=== PATIENT | female | born 1925 | race African-American/Black ===

== ENCOUNTER 2016-07-31 16:53 | Inpatient (IN) | payer MEDICARE, MEDICAID ==
--- NOTE | 2016-07-31 17:06 | ER Document Report ---
ED General - General Mode of Arrival: Medic Information source: Patient, Emergency Med Personnel TRAVEL OUTSIDE OF THE [place] IN LAST 30 DAYS: No - HPI Patient complains to provider of: Tremor Onset: This afternoon Onset/Duration: Gradual, Persistent, Better <AYAH RODRIGUEZ - Last Filed: 07/31/16 17:24> <JEOVANNY LOPEZ - Last Filed: 07/31/16 20:50> - General Chief Complaint: Tremor Stated Complaint: TREMORS Notes: Patient is an 89 y/o female presenting to the emergency department via EMS from her half-way concerned of tremor onset this afternoon. Patient states that this is not normal for her at all. Patient did not say much else. EMS states that patients blood sugar was in the low 200s, and that the patient did not want to come to the emergency department, but the half-way forced her to come. (AYAH RODRIGUEZ) - Related Data Allergies/Adverse Reactions: nitrofurantoin macrocrystalline [From Macrodantin] Allergy (Verified 02/13/15 06 :19) Past Medical History - General Information source: Patient, Emergency Med Personnel - Social History Smoking Status: Unknown if Ever Smoked Family History: Reviewed & Not Pertinent - Past Medical History Cardiac Medical History: Reports: Hx Congestive Heart Failure, Hx Hypertension Endocrine Medical History: Reports: Hx Diabetes Mellitus Type 2 GI Medical History: Musculoskeltal Medical History: Reports Hx Arthritis Psychiatric Medical History: Reports: Hx Anxiety Infectious Medical History: - Immunizations Hx Diphtheria, Pertussis, Tetanus Vaccination: Yes - unknown <AYAH RODRIGUEZ - Last Filed: 07/31/16 17:24> Review of Systems - Review of Systems Constitutional: See HPI, Other - Shaking EENT: No symptoms reported Cardiovascular: No symptoms reported Respiratory: No symptoms reported Gastrointestinal: No symptoms reported Genitourinary: No symptoms reported Female Genitourinary: No symptoms reported Musculoskeletal: No symptoms reported Skin: No symptoms reported Hematologic/Lymphatic: No symptoms reported Neurological/Psychological: See HPI, Tremor <AYAH RODRIGUEZ - Last Filed: 07/31/16 17:24> Physical Exam - Vital signs Interpretation: Tachycardic, Tachypneic - General General appearance: Alert - HEENT Head: Normocephalic, Atraumatic Eyes: Normal Pupils: PERRL Neck: No: Carotid bruit - Respiratory Respiratory status: Tachypnea Chest status: Nontender Breath sounds: Other - breathing loud - upper airway Chest palpation: Normal - Cardiovascular Rhythm: Tachycardia Heart sounds: Normal auscultation Murmur: No - Abdominal Inspection: Normal Distension: No distension Bowel sounds: Normal Tenderness: Nontender Organomegaly: No organomegaly - Extremities General upper extremity: Normal inspection, Nontender, Normal color General lower extremity: Normal inspection, Nontender, Normal color - Neurological Neuro grossly intact: Yes Cognition: Normal K[place]na Coma Scale Eye Opening: Spontaneous [place] Coma Scale Verbal: Oriented [place] Coma Scale Motor: Obeys Commands Kianna Coma Scale Total: 15 - Psychological Associated symptoms: Normal affect, Normal mood - Skin Skin Temperature: Hot Skin Moisture: Dry Skin Color: Normal <AYAH RODRIGUEZ - Last Filed: 07/31/16 17:24> Course - Laboratory Result Diagrams: 07/31/16 18:48 07/31/16 18:48 - Diagnostic Test Radiology reviewed: Image reviewed, Reports reviewed - Acute abdominal series is unremarkable - EKG Interpretation by Me EKG shows normal: Sinus rhythm, [place], Intervals, QRS Complexes. abnormal: ST-T Waves - Inferior T abnormalities Rate: Tachycardia - 127 P Waves: LAE - Consults Dr. Devi Time consulted: 20:45 Consulted provider: will come to ER <JEOVANNY LOPEZ - Last Filed: 07/31/16 20:50> - Vital Signs Vital signs: Temp Pulse Resp BP Pulse Ox 100.2 F 109 H 23 H 131/68 H 98 07/31/16 19:21 07/31/16 17:10 07/31/16 19:13 07/31/16 17:10 07/31/16 19:13 (JEOVANNY LOPEZ) - Laboratory Laboratory results interpreted by me: 07/31/16 07/31/16 07/31/16 18:48 18:48 18:48 WBC 15.3 H RDW 14.2 H Seg Neuts % (Manual) 91 H Lymphocytes % (Manual) 3 L Monocytes % (Manual) 2 L Abs Neuts (Manual) 14.5 H Creatinine 1.37 H Est GFR ( Amer) 44 L Est GFR (Non-Af Amer) 36 L Glucose 150 H Urine Protein 30 H Urine Ketones TRACE H Ur Leukocyte Esterase LARGE H Discharge <AYAH RODRIGUEZ - Last Filed: 07/31/16 17:24> - Discharge Admitting Provider: Hospitalist Unit Admitted: Telemetry <JEOVANNY LOPEZ - Last Filed: 07/31/16 20:50> - Discharge Clinical Impression: Tachycardia Urinary tract infection Qualifiers: Urinary tract infection type: site unspecified Hematuria presence: without hematuria Qualified Code(s): N39.0 - Urinary tract infection, site not specified Leukocytosis Qualifiers: Leukocytosis type: bandemia Qualified Code(s): D72.825 - Bandemia Fever Qualifiers: Fever type: unspecified Qualified Code(s): R50.9 - Fever, unspecified Condition: Stable Disposition: ADMITTED INPATIENT Scribe Attestation: 07/31/16 20:50 I personally performed the services described in the documentation, reviewed and edited the documentation which was dictated to the scribe in my presence, and it accurately records my words and actions. (JEOVANNY LOPEZ) Scribe Documentation - Scribe Written by Scribhonorio:: Ayah Rodriguez 07/31/2016 17:06 acting as scribe for :: Negro <AYAH RODRIGUEZ - Last Filed: 07/31/16 17:24>
[2016-07-31 19:03] LABS: HEMOGLOBIN 12.1 g/dL (12.0-15.5); HGB HCT DIFFERENCE -0.7; MEAN CORPUSCULAR HGB CONC 32.6 g/dL (32.0-36.0); MEAN CORPUSCULAR VOLUME 83 fl (80-97); RED BLOOD COUNT 4.47 10^6/uL (3.72-5.28); RED CELL DISTRIBUTION WIDTH 14.2 % (11.5-14.0); WHITE BLOOD COUNT 15.3 10^3/uL (4.0-10.5)
[2016-07-31 19:18] LABS: BAND NEUTROPHILS % (MANUAL) 4 % (3-5); BASOPHILS % (MANUAL) 0 % (0-2); EOSINOPHILS % (MANUAL) 0 % (0-6); LYMPHOCYTES % (MANUAL) 3 % (13-45); TOTAL CELLS COUNTED 100
[2016-07-31 19:19] LABS: HYPOCHROMASIA SLIGHT
[2016-07-31 19:20] LABS: ALANINE AMINOTRANSFERASE 34 U/L (9-52); ALBUMIN 3.5 g/dL (3.5-5.0); ALKALINE PHOSPHATASE 62 U/L (38-126); ANION GAP 15 (5-19); ASPARTATE AMINO TRANSFERASE 19 U/L (14-36); BILIRUBIN,TOTAL 0.7 mg/dL (0.2-1.3); BLOOD UREA NITROGEN 20 mg/dL (7-20); CALCIUM 9.3 mg/dL (8.4-10.2); CARBON DIOXIDE 25 mmol/L (22-30); CHLORIDE 104 mmol/L (98-107); CREATININE RESULT 1.37 mg/dL (0.52-1.25); GLUCOSE 150 mg/dL (75-110); MAGNESIUM 1.9 mg/dL (1.6-2.3); POTASSIUM 3.9 mmol/L (3.6-5.0); SODIUM 143.5 mmol/L (137-145); TOTAL PROTEIN 6.5 g/dL (6.3-8.2)
[2016-07-31 19:27] LABS: APPEARANCE,URINE CLOUDY; BILIRUBIN,URINE NEGATIVE (NEGATIVE); GLUCOSE, URINE NEGATIVE (NEGATIVE); KETONES,URINE TRACE mg/dL (NEGATIVE); LEUKOCYTE ESTERASE,URINE LARGE (NEGATIVE); NITRITE,URINE NEGATIVE (NEGATIVE); PROTEIN,URINE 30 mg/dL (NEGATIVE); URINE SPECIFIC GRAVITY 1.011; UROBILINOGEN,URINE NEGATIVE mg/dL (<2.0)
[2016-07-31] MEDS ORDERED: ACETAMINOPHEN 650 MG SUPP.RECT PR ONE (19:54)
[2016-07-31] MEDS ORDERED: CEFTRIAXONE 1 GM/D5W RTU 50 ML IV ONE (20:03)
[2016-07-31] MEDS ORDERED: DEXTROSE 40% GEL 15 GM TUBE PO PRN ×2 (21:51)
[2016-07-31] MEDS ORDERED: ACETAMINOPHEN 325 MG TABLET PO PRN (21:51)
[2016-07-31] MEDS ORDERED: DEXTROSE 50%-WATER 25 GM/50 ML DISP.SYRIN IV PRN ×2 (21:51)
[2016-07-31] MEDS ORDERED: GLUCAGON,HUMAN RECOMB 1 MG INJ IM PRN (21:51)
[2016-07-31] MEDS ORDERED: 1/2 NORMAL SALINE 1,000 ML IV PRN (21:58)
--- NOTE | 2016-07-31 22:15 | PDOC H&P ---
History of Present Illness Admission Date/PCP: 07/31/16 21:24 DANYELLE VYAS--[place], [place] Patient complains of: shaking History of Present Illness: LELE PRITCHETT is a 89 year old female resident of [facility] assisted living in [facility], sent to the emergency room for evaluation of above complaint. Patient has been discussed with emergency room physician who evaluated the patient. Patient is globally disoriented and is able to provide no history whatsoever in terms of acute or chronic events, review of systems, personal habits, family history, etc., Other than the fact that she was "shaking" earlier today. No friends or family are present. Old inpatient records are reviewed. Patient denies pain. No further information available this point in time.. From review of old records, concomitant medical problems include hypothyroidism , type I diabetes mellitus, dementia, hypertension, and a reported history of congestive heart failure, with unknown ejection fraction. Laboratory results are listed in Epiclist and are reviewed. X-ray summary results are listed below, with full report(s) reviewed. . EKG reviewed and compared to prior tracing from 07/06/2014. Social history/personal habits: No information available this point in time. Should patient become mentally incapacitated, surrogate health care decision maker no information available this point in time.. Family History : From review of old records, positive for diabetes. No other information available this point in time. Allergies/adverse reactions are listed in Epiclist and are reviewed. Home medications are reviewed from a copy of the medication administration record from the [facility] and are to be reconciled by nursing staff in [facility]. One page is somewhat illegible, and I have asked ER staff to request a second copy. Detention medications initially autopopulated into [facility] may not accurately reflect patient's true medications, dosages, and/or frequencies. Unfortunately, patient uncertain of medications/dosages/frequencies. REVIEW OF SYSTEMS: See history and present illness. Otherwise, no further information available this point in time. PHYSICAL EXAMINATION: 5 feet tall. 68 kg. 99.3 kg/m BMI. Blood pressure 111/66. Pulse 104 and regular. 96% saturation on room air. Respirations are 17 and unlabored. Temperature 100.2 earlier; skin feels normothermic at present. Obese otherwise well-developed elderly -[place]rist[place] female, appearing in number of years younger than her stated age. She is awake reasonably alert pleasant and cooperative. No obvious distress other than somewhat anxious. Denies pain. Skin is warm and dry. No grossly obvious evidence of rash in areas of skin examined. No subcutaneous nodules palpated. ENT: Hearing grossly normal to normal conversation. Tongue midline on protrusion pink and slightly moist. Eyes: No scleral icterus. Pupils equal and reactive to light at 4 mm. Traer conjunctivae. Neck is supple and nontender to gentle active range of motion and palpation. Midline trachea. No palpable thyroid nodule mass enlargement or tenderness. Lymphatic: No palpable cervical or clavicular nodes. Neck and lymphatic exams limited by patient body habitus. Psychiatric: Globally disoriented. Lungs: Auscultation reveals clear and equal breath sounds bilaterally. No use of accessory respiratory muscles. Cardiovascular: Heart regular rate and rhythm, without gallop murmur or rub. No carotid or abdominal aortic bruits. No ankle or pedal edema. Faintly palpable dorsalis pedis pulses. Abdomen: soft, somewhat obese, nontender with positive bowel sounds. Unable to adequately evaluate abdomen for masses or organomegaly due to body habitus. Extremities: Feet are warm and dry. No calf tenderness to compression. No grossly obvious visual evidence of calf swelling. Gentle manipulation of lower extremities fails to reveal any obvious evidence of injury or instability to knees hips or ankles. Neurologic: Moves upper extremities grossly normally. Patellar reflexes absent. Absent Babinski. Light touch difficult to determine due to her mental status. Dorsiflexion and plantarflexion of feet 5 / 5 and symmetric. Past Medical History Cardiac Medical History: Reports: Congestive Heart Failure, Hypertension Denies: Coronary Artery Disease, Myocardial Infarction Pulmonary Medical History: Denies: Asthma, Bronchitis, Chronic Obstructive Pulmonary Disease (COPD), Pneumonia, Tuberculosis Neurological Medical History: Denies: Seizures Endocrine Medical History: Reports: Diabetes Mellitus Type 2 GI Medical History: Musculoskeltal Medical History: Reports: Arthritis Hematology: Reports: Anemia Past Surgical History Past Surgical History: Denies: Pacemaker Social History Information Source: Emergency Med Personnel, [facility] Records Lives with: Detention Smoking Status: Unknown if Ever Smoked Frequency of Alcohol Use: None Hx Recreational Drug Use: No Hx Prescription Drug Abuse: No - Advance Directive Resuscitation Status: Full Code Family History Family History: Reviewed & Not Pertinent Parental Family History Reviewed: Yes - quite limited information available. Children Family History Reviewed: Yes Sibling(s) Family History Reviewed.: Yes Medication/Allergy Home Medications: RX: Acetaminophen [Tylenol] 650 mg PO Q4HP PRN 08/01/16 RX: Albuterol Sulfate [Ventolin 0.083% Neb 2.5 mg/3 mL Ampul] 1 vial NEB Q4HP PRN 08/01/16 RX: Dextran 70/Hypromellose [Artificial Tears] 1 drop OU Q4HP PRN 08/01/16 RX: Guaifenesin/D-Methorphan Hb [Robitussin-Dm Syrup 10 ml Udcup] 10 ml PO Q4HP PRN 08/01/16 RX: Insulin Aspart [Novolog Insulin (Aspart) 100 unit/mL] See Protocol SUBCUT TID 08/01/16 RX: Insulin Glargine,Hum.rec.anlog [Lantus Insulin 100 Unit/1 ml 10 ml] 60 units SUBCUT QPM 08/01/16 RX: Levothyroxine Sodium 1 tab PO QAM 08/01/16 RX: Lisinopril 1 tab PO TID 08/01/16 RX: Loperamide HCl [Imodium 2 mg Capsule] See Protocol PO ASDIR PRN 08/01/16 RX: Lorazepam 1 tab PO BID 08/01/16 RX: Magnesium Hydroxide [Milk of Magnesia 30 ml Udcup] 30 ml PO BIDP PRN RX: Olanzapine 1 tab PO QAM 08/01/16 RX: Olanzapine 1 tab PO QPM 08/01/16 RX: Simvastatin 1 tab PO QPM 08/01/16 RX: Sitagliptin Phosphate [Januvia] 1 tab PO QAM 08/01/16 RX: Zolpidem Tartrate 10 mg PO HSP PRN 08/01/16 RX: Cefuroxime Axetil [Ceftin 250 mg Tablet] 250 mg PO BID #14 tablet 08/04/16 RX: Oxycodone HCl/Acetaminophen [Oxycodone-Acetaminophen 5-325] 1 tab PO BIDP PRN #10 tablet 08/04/16 Allergies/Adverse Reactions: nitrofurantoin macrocrystalline [From Macrodantin] Allergy (Verified 02/13/15 06 :19) Physical Exam Vital Signs: Temp Pulse Resp BP Pulse Ox 100.2 F 109 H 25 H 111/66 97 07/31/16 19:21 12/31/16 17:10 07/31/16 21:01 07/31/16 21:01 07/31/16 21:01 Results Impressions: Acute Abdomen Series 07/31/16 17:19 IMPRESSION: NO RADIOGRAPHIC EVIDENCE FOR ACUTE ABDOMINAL DISEASE. Assessment & Plan - Diagnosis (1) ARF (acute renal failure) Qualifiers: Acute renal failure type: unspecified Qualified Code(s): N17.9 - Acute kidney failure, unspecified Is this a current diagnosis for this admission?: YesPlan: Likely due to an element of underlying dehydration. 2 L of IV fluid. Follow- up chemistry. (2) Urinary tract infection Qualifiers: Urinary tract infection type: site unspecified Hematuria presence: without hematuria Qualified Code(s): N39.0 - Urinary tract infection, site not specified Is this a current diagnosis for this admission?: YesPlan: Blood and urine cultures have been drawn. Rocephin. Prior urine culture results from December 2014 noted; pansensitive microorganisms at that time. I have strongly encouraged patient not to get out of bed without notifying staff , to avoid a fall with injury. Patient normally ambulates with a walker, according to documents from the [facility]. Knee high SCDs for DVT prophylaxis, along with subcutaneous heparin. Impression and plans were discussed with patient, who concurs. Time spent in evaluation and management of patient: 58 minutes. (3) Diabetes mellitus type 1 Qualifiers: Diabetes mellitus complication status: without complication Qualified Code(s): E10.9 - Type 1 diabetes mellitus without complications Is this a current diagnosis for this admission?: YesPlan: Diabetic cardiac prerenal diet. Accu-Cheks with appropriate sliding scale coverage.Resume home medications as appropriate once these have been reviewed. (4) Hypothyroid Qualifiers: Hypothyroidism type: unspecified Qualified Code(s): E03.9 - Hypothyroidism, unspecified Is this a current diagnosis for this admission?: YesPlan: TSH level. Resume home medications as appropriate once these have been reviewed. - Inpatient Certification Based on my medical assessment, after consideration of the patient's comorbidities, presenting symptoms, or acuity I expect that the services needed warrant INPATIENT care.: Yes I certify that my determination is in accordance with my understanding of Medicare's requirements for reasonable and necessary INPATIENT services [42 CFR 412.3e].: Yes Medical Necessity: Need Close Monitoring Due to Risk of Patient Decompensation, Need For IV Fluids, Need For Continuous Telemetry Monitoring, Need for IV Antibiotics, Risk of Complication if Not Cared For in Hospital Post Hospital Care: D/C or Transfer Summary
--- NOTE | 2016-07-31 22:43 | EKG REPORT ---
SEVERITY:- BORDERLINE ECG - SINUS TACHYCARDIA PROBABLE LEFT ATRIAL ABNORMALITY BORDERLINE T ABNORMALITIES, INFERIOR LEADS : Confirmed by: Elliott Ma MD 31-Jul-2016 22:42:33
[2016-07-31 23:02] LABS: ADD ON TESTING BLD IN LAB ACKNOWLEDGE
[2016-08-01] MEDS: HEPARIN SOD (PORCINE) 5,000 UNIT/ML 1 ML SYRINGE SUBCUT SCH ×3 (01:24→21:46)
[2016-08-01 07:35] LABS: ANION GAP 14 (5-19); BLOOD UREA NITROGEN 21 mg/dL (7-20); CALCIUM 9.1 mg/dL (8.4-10.2); CARBON DIOXIDE 28 mmol/L (22-30); CHLORIDE 104 mmol/L (98-107); CREATININE RESULT 1.36 mg/dL (0.52-1.25); GLUCOSE 153 mg/dL (75-110); POTASSIUM 4.1 mmol/L (3.6-5.0)
[2016-08-01 07:46] LABS: ABSOLUTE BASOPHILS # (AUTO) 0.1 10^3/uL (0.0-0.2); ABSOLUTE LYMPHOCYTES (AUTO) 1.1 10^3/uL (0.5-4.7); ABSOLUTE MONOCYTES (AUTO) 1.2 10^3/uL (0.1-1.4); ABSOLUTE NEUT (AUTO) 14.2 10^3/uL (1.7-8.2); BASOPHILS % (AUTO) 0.8 % (0-2); EOSINOPHILS % (AUTO) 0.2 % (0-6); HEMATOCRIT 38.7 % (36.0-47.0); HEMOGLOBIN 12.3 g/dL (12.0-15.5); HGB HCT DIFFERENCE -1.8; LYMPHOCYTES % (AUTO) 6.7 % (13-45); MEAN CORPUSCULAR HGB CONC 31.9 g/dL (32.0-36.0); MEAN CORPUSCULAR VOLUME 85 fl (80-97); MONOCYTES % (AUTO) 7.2 % (3-13); RED BLOOD COUNT 4.58 10^6/uL (3.72-5.28); RED CELL DISTRIBUTION WIDTH 14.3 % (11.5-14.0); SEGMENTED NEUTROPHILS % (AUTO) 85.1 % (42-78); WHITE BLOOD COUNT 16.7 10^3/uL (4.0-10.5)
[2016-08-01] MEDS ORDERED: INFLUENZA ADLT QUAD (36MOS+) 2016-17 VAC 0.5 ML SYR IM PRN (08:43)
[2016-08-01] MEDS ORDERED: LORAZEPAM 0.5 MG TABLET PO PRN (09:45)
[2016-08-01] MEDS: CEFTRIAXONE 1 GM/D5W RTU 50 ML IV SCH (09:48)
[2016-08-01] MEDS: DOCUSATE SODIUM 100 MG CAPSULE PO SCH ×2 (09:51→17:51)
[2016-08-01] MEDS ORDERED: ACETAMINOPHEN 325 MG TABLET PO PRN (09:55)
[2016-08-01] MEDS ORDERED: ZOLPIDEM TARTRATE 5 MG TABLET PO PRN (11:30)
[2016-08-01] MEDS ORDERED: SITAGLIPTIN PHOSPHATE 50 MG TABLET PO SCH (11:30)
[2016-08-01] MEDS ORDERED: POLYVINYL ALCOHOL 1.4% OPH SOLN 15 ML OU PRN (11:45)
[2016-08-01] MEDS ORDERED: ALBUTEROL SULFATE 0.083% NEB 2.5 MG/3 ML AMPUL NEB PRN (11:45)
--- NOTE | 2016-08-01 12:27 | PDOC PROGRESS REPORT ---
Subjective Progress Note for:: 08/01/16 Subjective:: Patient is seen on morning rounds. She is resting in bed. She complains of feeling " shaky". She is oriented to her self otherwise confused which is her baseline,.. She denies any shortness of breath, dyspnea, cough or chest pain. She denies any nausea, vomiting, abdominal pain or diarrhea. She denies dysuria Physical Exam Vital Signs: Temp Pulse Resp BP Pulse Ox 98.4 F 99 18 143/70 H 97 08/01/16 11:27 08/01/16 11:27 08/01/16 11:27 08/01/16 11:27 08/01/16 11:27 Intake & Output 07/31/16 08/01/16 08/02/16 06:59 06:59 06:59 Intake Total 602 Balance 602 General appearance: PRESENT: no acute distress, obese, well-developed, well- nourished Head exam: PRESENT: atraumatic, normocephalic Eye exam: PRESENT: conjunctival injection Ear exam: PRESENT: normal external ear exam Mouth exam: PRESENT: moist, tongue midline Neck exam: ABSENT: carotid bruit, JVD, lymphadenopathy, thyromegaly Respiratory exam: PRESENT: clear to auscultation ortega. ABSENT: rales, rhonchi, wheezes Cardiovascular exam: PRESENT: RRR. ABSENT: diastolic murmur, rubs, systolic murmur Pulses: PRESENT: normal dorsalis pedis pul Vascular exam: PRESENT: normal capillary refill GI/Abdominal exam: PRESENT: normal bowel sounds, soft. ABSENT: distended, guarding, mass, organolmegaly, rebound, tenderness Rectal exam: PRESENT: deferred Extremities exam: PRESENT: full ROM. ABSENT: calf tenderness, clubbing, pedal edema Neurological exam: PRESENT: alert, awake, oriented to person, CN II-XII grossly intact. ABSENT: motor sensory deficit Psychiatric exam: PRESENT: appropriate affect, normal mood. ABSENT: homicidal ideation, suicidal ideation Skin exam: PRESENT: dry, intact, warm. ABSENT: cyanosis, rash Results Laboratory Results: 08/01/16 06:56 08/01/16 06:56 08/01/16 08/01/16 06:56 06:56 WBC 16.7 H RBC 4.58 Hgb 12.3 Hct 38.7 MCV 85 MCH 27.0 MCHC 31.9 L RDW 14.3 H Plt Count 184 Seg Neutrophils % 85.1 H Lymphocytes % 6.7 L Monocytes % 7.2 Eosinophils % 0.2 Basophils % 0.8 Absolute Neutrophils 14.2 H Absolute Lymphocytes 1.1 Absolute Monocytes 1.2 Absolute Eosinophils 0.0 Absolute Basophils 0.1 Sodium 146.0 H Potassium 4.1 Chloride 104 Carbon Dioxide 28 Anion Gap 14 BUN 21 H Creatinine 1.36 H Est GFR ( Amer) 44 L Est GFR (Non-Af Amer) 37 L Glucose 153 H Calcium 9.1 Impressions: Acute Abdomen Series 07/31/16 17:19 IMPRESSION: NO RADIOGRAPHIC EVIDENCE FOR ACUTE ABDOMINAL DISEASE. Assessment & Plan - Diagnosis (1) Urinary tract infection Qualifiers: Urinary tract infection type: site unspecified Hematuria presence: without hematuria Qualified Code(s): N39.0 - Urinary tract infection, site not specified Is this a current diagnosis for this admission?: YesPlan: Patient placed on IV broad spectrum antibiotics. Urine culture is pending, presently showing gram negative rods (2) Fever Qualifiers: Fever type: unspecified Qualified Code(s): R50.9 - Fever, unspecified Is this a current diagnosis for this admission?: YesPlan: Resolved after first dose of IV antibiotics (3) ARF (acute renal failure) Qualifiers: Acute renal failure type: unspecified Qualified Code(s): N17.9 - Acute kidney failure, unspecified Is this a current diagnosis for this admission?: YesPlan: Most likely prerenal from dehydration and urinary tract infection (4) Leukocytosis Qualifiers: Leukocytosis type: bandemia Qualified Code(s): D72.825 - Bandemia (5) Diabetes Qualifiers: Diabetes mellitus type: type 2 Diabetes mellitus complication status: with kidney complications Diabetes mellitus complication detail: with chronic kidney disease Chronic kidney disease stage: stage 2 (mild) Is this a current diagnosis for this admission?: YesPlan: Continuse current medications and sliding scale coverage (6) Bacteremia Is this a current diagnosis for this admission?: Yes - Time Time Spent with patient: 25-34 minutes Critical Time spent with patient: 15-24 minutes Medications reviewed and adjusted accordingly: Yes Anticipated discharge: SNF - Inpatient Certification Based on my medical assessment, after consideration of the patient's comorbidities, presenting symptoms, or acuity I expect that the services needed warrant INPATIENT care.: Yes I certify that my determination is in accordance with my understanding of Medicare's requirements for reasonable and necessary INPATIENT services [42 CFR 412.3e].: Yes Medical Necessity: Need For IV Fluids, Need for IV Antibiotics, Risk of Complication if Not Cared For in Hospital
[2016-08-01] MEDS: INSULIN LISPRO 100 UNIT/ML 3 ML VIAL SUBCUT PRN ×2 (12:53→16:43)
[2016-08-01] MEDS ORDERED: LEVOTHYROXINE SODIUM 0.05 MG TABLET PO ONE (13:00)
[2016-08-01] MEDS ORDERED: ALBUTEROL SULFATE HFA (90 MCG/PUFF) 200 PUFF/8.5 GM MDI IH PRN (13:00)
[2016-08-01] MEDS: INSULIN GLARGINE,HUM.REC.ANLOG 1,000 UNIT/10 ML UNIT SUBCUT SCH (17:47)
[2016-08-01] MEDS: OLANZAPINE 5 MG TABLET PO SCH (17:48)
[2016-08-01] MEDS ORDERED: INSULIN GLARGINE,HUM.REC.ANLOG 1,000 UNIT/10 ML UNIT SUBCUT SCH (18:00)
[2016-08-01] MEDS: SIMVASTATIN 10 MG TABLET PO SCH (21:46)
[2016-08-02 05:23] LABS: ABSOLUTE BASOPHILS # (AUTO) 0.1 10^3/uL (0.0-0.2); ABSOLUTE LYMPHOCYTES (AUTO) 1.6 10^3/uL (0.5-4.7); ABSOLUTE MONOCYTES (AUTO) 1.4 10^3/uL (0.1-1.4); ABSOLUTE NEUT (AUTO) 11.6 10^3/uL (1.7-8.2); EOSINOPHILS % (AUTO) 0.1 % (0-6); HEMATOCRIT 36.1 % (36.0-47.0); HEMOGLOBIN 11.6 g/dL (12.0-15.5); HGB HCT DIFFERENCE -1.3; LYMPHOCYTES % (AUTO) 11.1 % (13-45); MEAN CORPUSCULAR HEMOGLOBIN 27.1 pg (27.0-33.4); MEAN CORPUSCULAR HGB CONC 32.2 g/dL (32.0-36.0); MEAN CORPUSCULAR VOLUME 84 fl (80-97); MONOCYTES % (AUTO) 9.2 % (3-13); RED BLOOD COUNT 4.29 10^6/uL (3.72-5.28); RED CELL DISTRIBUTION WIDTH 14.3 % (11.5-14.0); SEGMENTED NEUTROPHILS % (AUTO) 78.6 % (42-78); WHITE BLOOD COUNT 14.8 10^3/uL (4.0-10.5)
[2016-08-02 05:48] LABS: ANION GAP 17 (5-19); BLOOD UREA NITROGEN 17 mg/dL (7-20); CALCIUM 8.8 mg/dL (8.4-10.2); CARBON DIOXIDE 22 mmol/L (22-30); CHLORIDE 104 mmol/L (98-107); CREATININE RESULT 1.29 mg/dL (0.52-1.25); GLUCOSE 153 mg/dL (75-110); POTASSIUM 4.1 mmol/L (3.6-5.0); SODIUM 142.7 mmol/L (137-145)
[2016-08-02] MEDS: OLANZAPINE 5 MG TABLET PO SCH ×2 (07:47→17:32)
[2016-08-02] MEDS: LEVOTHYROXINE SODIUM 0.05 MG TABLET PO SCH (07:47)
[2016-08-02] MEDS ORDERED: OLANZAPINE 5 MG TABLET PO SCH (08:00)
[2016-08-02] MEDS: CEFTRIAXONE 1 GM/D5W RTU 50 ML IV SCH (11:01)
[2016-08-02] MEDS: SITAGLIPTIN PHOSPHATE 25 MG TABLET PO SCH (11:01)
[2016-08-02] MEDS: HEPARIN SOD (PORCINE) 5,000 UNIT/ML 1 ML SYRINGE SUBCUT SCH ×2 (11:03→22:36)
[2016-08-02] MEDS: DOCUSATE SODIUM 100 MG CAPSULE PO SCH ×2 (11:03→17:32)
--- NOTE | 2016-08-02 12:05 | PDOC PROGRESS REPORT ---
Subjective Progress Note for:: 08/02/16 Subjective:: Patient is seen on morning rounds. She is sitting on the side of the bed eating breakfast. She is oriented to her self otherwise confused which is her baseline. She denies any shortness of breath, dyspnea, cough or chest pain. She denies any nausea, vomiting, abdominal pain or diarrhea. She denies dysuria Physical Exam Vital Signs: Temp Pulse Resp BP Pulse Ox 99.0 F 103 H 20 123/67 95 08/02/16 07:51 08/02/16 07:51 08/02/16 07:51 08/02/16 07:51 08/02/16 07:51 Intake & Output 08/01/16 08/02/16 08/03/16 06:59 06:59 06:59 Intake Total 602 1402 Balance 602 1402 General appearance: PRESENT: no acute distress, well-developed, well-nourished Head exam: PRESENT: atraumatic, normocephalic Eye exam: PRESENT: conjunctiva pink, EOMI, PERRLA. ABSENT: scleral icterus Ear exam: PRESENT: normal external ear exam Mouth exam: PRESENT: moist, tongue midline Neck exam: ABSENT: carotid bruit, JVD, lymphadenopathy, thyromegaly Respiratory exam: PRESENT: clear to auscultation ortega. ABSENT: rales, rhonchi, wheezes Cardiovascular exam: PRESENT: RRR. ABSENT: diastolic murmur, rubs, systolic murmur Pulses: PRESENT: normal dorsalis pedis pul Vascular exam: PRESENT: normal capillary refill GI/Abdominal exam: PRESENT: normal bowel sounds, soft. ABSENT: distended, guarding, mass, organolmegaly, rebound, tenderness Rectal exam: PRESENT: deferred Extremities exam: PRESENT: full ROM. ABSENT: calf tenderness, clubbing, pedal edema Neurological exam: PRESENT: alert, altered, oriented to person, CN II-XII grossly intact, normal gait Psychiatric exam: PRESENT: agitated Skin exam: PRESENT: dry, intact, warm. ABSENT: cyanosis, rash Results Laboratory Results: 08/02/16 04:05 08/02/16 04:05 08/02/16 08/02/16 04:05 04:05 WBC 14.8 H RBC 4.29 Hgb 11.6 L Hct 36.1 MCV 84 MCH 27.1 MCHC 32.2 RDW 14.3 H Plt Count 203 Seg Neutrophils % 78.6 H Lymphocytes % 11.1 L Monocytes % 9.2 Eosinophils % 0.1 Basophils % 1.0 Absolute Neutrophils 11.6 H Absolute Lymphocytes 1.6 Absolute Monocytes 1.4 Absolute Eosinophils 0.0 Absolute Basophils 0.1 Sodium 142.7 Potassium 4.1 Chloride 104 Carbon Dioxide 22 Anion Gap 17 BUN 17 Creatinine 1.29 H Est GFR ( Amer) 47 L Est GFR (Non-Af Amer) 39 L Glucose 153 H Calcium 8.8 Impressions: Acute Abdomen Series 07/31/16 17:19 IMPRESSION: NO RADIOGRAPHIC EVIDENCE FOR ACUTE ABDOMINAL DISEASE. Assessment & Plan - Diagnosis (1) Urinary tract infection Qualifiers: Urinary tract infection type: site unspecified Hematuria presence: without hematuria Qualified Code(s): N39.0 - Urinary tract infection, site not specified Is this a current diagnosis for this admission?: YesPlan: Patient placed on IV broad spectrum antibiotics. Urine culture is pending, presently showing gram negative rods (2) Fever Qualifiers: Fever type: unspecified Qualified Code(s): R50.9 - Fever, unspecified Is this a current diagnosis for this admission?: YesPlan: Resolved after first dose of IV antibiotics (3) ARF (acute renal failure) Qualifiers: Acute renal failure type: unspecified Qualified Code(s): N17.9 - Acute kidney failure, unspecified Is this a current diagnosis for this admission?: YesPlan: Most likely prerenal from dehydration and urinary tract infection (4) Leukocytosis Qualifiers: Leukocytosis type: bandemia Qualified Code(s): D72.825 - Bandemia Is this a current diagnosis for this admission?: YesPlan: Resolved with antibiotics (5) Diabetes Qualifiers: Diabetes mellitus type: type 2 Diabetes mellitus complication status: with kidney complications Diabetes mellitus complication detail: with chronic kidney disease Chronic kidney disease stage: stage 2 (mild) Is this a current diagnosis for this admission?: YesPlan: Continuse current medications and sliding scale coverage (6) Bacteremia Is this a current diagnosis for this admission?: YesPlan: 2 out of 2 positive blood cultures - Time Time Spent with patient: 25-34 minutes Critical Time spent with patient: 15-24 minutes Medications reviewed and adjusted accordingly: Yes Anticipated discharge: SNF - Inpatient Certification Based on my medical assessment, after consideration of the patient's comorbidities, presenting symptoms, or acuity I expect that the services needed warrant INPATIENT care.: Yes I certify that my determination is in accordance with my understanding of Medicare's requirements for reasonable and necessary INPATIENT services [42 CFR 412.3e].: Yes Medical Necessity: Need For IV Fluids, Need for IV Antibiotics, Risk of Complication if Not Cared For in Hospital
[2016-08-02] MEDS: LORAZEPAM 0.5 MG TABLET PO PRN ×2 (12:33→14:53)
[2016-08-02] MEDS: INSULIN LISPRO 100 UNIT/ML 3 ML VIAL SUBCUT PRN (16:15)
[2016-08-02] MEDS: INSULIN GLARGINE,HUM.REC.ANLOG 1,000 UNIT/10 ML UNIT SUBCUT SCH (17:33)
[2016-08-02] MEDS: SIMVASTATIN 10 MG TABLET PO SCH (22:35)
[2016-08-03] MEDS: LORAZEPAM 0.5 MG TABLET PO PRN ×4 (00:19→18:15)
[2016-08-03] MEDS: CEFTRIAXONE 1 GM/D5W RTU 50 ML IV SCH (11:15)
[2016-08-03] MEDS: LEVOTHYROXINE SODIUM 0.05 MG TABLET PO SCH (11:15)
[2016-08-03] MEDS: OLANZAPINE 5 MG TABLET PO SCH ×2 (11:15→18:10)
[2016-08-03] MEDS: DOCUSATE SODIUM 100 MG CAPSULE PO SCH ×2 (11:15→18:08)
[2016-08-03] MEDS: HEPARIN SOD (PORCINE) 5,000 UNIT/ML 1 ML SYRINGE SUBCUT SCH ×2 (11:17→22:48)
[2016-08-03] MEDS: SITAGLIPTIN PHOSPHATE 25 MG TABLET PO SCH (11:17)
--- NOTE | 2016-08-03 12:10 | PDOC PROGRESS REPORT ---
Subjective Progress Note for:: 08/03/16 Subjective:: Patient is seen on morning rounds. She is resting in bed. She is oriented to her self otherwise confused which is her baseline She denies any shortness of breath, dyspnea, cough or chest pain. She denies any nausea, vomiting, abdominal pain or diarrhea. She denies dysuria Physical Exam Vital Signs: Temp Pulse Resp BP Pulse Ox 98.1 F 82 16 129/60 H 96 08/03/16 07:55 08/03/16 11:14 08/03/16 11:14 08/03/16 07:55 08/03/16 11:14 Intake & Output 08/02/16 08/03/16 08/04/16 06:59 06:59 06:59 Intake Total 1402 580 100 Balance 1402 580 100 Weight 81.5 kg General appearance: PRESENT: no acute distress, obese, well-developed, well- nourished Head exam: PRESENT: atraumatic, normocephalic Eye exam: PRESENT: conjunctiva pink, EOMI, PERRLA. ABSENT: scleral icterus Ear exam: PRESENT: normal external ear exam Mouth exam: PRESENT: moist, tongue midline Neck exam: ABSENT: carotid bruit, JVD, lymphadenopathy, thyromegaly Respiratory exam: PRESENT: clear to auscultation ortega. ABSENT: rales, rhonchi, wheezes Cardiovascular exam: PRESENT: RRR. ABSENT: diastolic murmur, rubs, systolic murmur Pulses: PRESENT: normal dorsalis pedis pul Vascular exam: PRESENT: normal capillary refill GI/Abdominal exam: PRESENT: normal bowel sounds, soft. ABSENT: distended, guarding, mass, organolmegaly, rebound, tenderness Rectal exam: PRESENT: deferred Extremities exam: PRESENT: full ROM. ABSENT: calf tenderness, clubbing, pedal edema Neurological exam: PRESENT: alert, altered, CN II-XII grossly intact Psychiatric exam: PRESENT: anxious Results Laboratory Results: 08/02/16 04:05 08/02/16 04:05 Impressions: Acute Abdomen Series 07/31/16 17:19 IMPRESSION: NO RADIOGRAPHIC EVIDENCE FOR ACUTE ABDOMINAL DISEASE. Assessment & Plan - Diagnosis (1) Urinary tract infection Qualifiers: Urinary tract infection type: site unspecified Hematuria presence: without hematuria Qualified Code(s): N39.0 - Urinary tract infection, site not specified Is this a current diagnosis for this admission?: YesPlan: Patient placed on IV broad spectrum antibiotics. Urine culture is pending, presently showing gram negative rods (2) Fever Qualifiers: Fever type: unspecified Qualified Code(s): R50.9 - Fever, unspecified Is this a current diagnosis for this admission?: YesPlan: Resolved after first dose of IV antibiotics (3) ARF (acute renal failure) Qualifiers: Acute renal failure type: unspecified Qualified Code(s): N17.9 - Acute kidney failure, unspecified Is this a current diagnosis for this admission?: YesPlan: Most likely prerenal from dehydration and urinary tract infection (4) Leukocytosis Qualifiers: Leukocytosis type: bandemia Qualified Code(s): D72.825 - Bandemia Is this a current diagnosis for this admission?: YesPlan: Resolved with antibiotics (5) Diabetes Qualifiers: Diabetes mellitus type: type 2 Diabetes mellitus complication status: with kidney complications Diabetes mellitus complication detail: with chronic kidney disease Chronic kidney disease stage: stage 2 (mild) Is this a current diagnosis for this admission?: YesPlan: Continuse current medications and sliding scale coverage (6) Bacteremia Is this a current diagnosis for this admission?: YesPlan: 2 out of 2 positive blood cultures for ecoli. Continue antibiotics - Time Time Spent with patient: 25-34 minutes Critical Time spent with patient: 15-24 minutes Medications reviewed and adjusted accordingly: Yes Anticipated discharge: SNF Within: within 48 hours
[2016-08-03] MEDS: INSULIN GLARGINE,HUM.REC.ANLOG 1,000 UNIT/10 ML UNIT SUBCUT SCH (18:11)
[2016-08-03] MEDS: CEFUROXIME 250 MG TABLET PO SCH (18:11)
[2016-08-03] MEDS: SIMVASTATIN 10 MG TABLET PO SCH (22:41)
[2016-08-04] MEDS: LORAZEPAM 0.5 MG TABLET PO PRN ×3 (00:03→14:12)
[2016-08-04 06:03] LABS: ABSOLUTE BASOPHILS # (AUTO) 0.1 10^3/uL (0.0-0.2); ABSOLUTE EOSINOPHILS # (AUTO) 0.2 10^3/uL (0.0-0.6); ABSOLUTE LYMPHOCYTES (AUTO) 1.5 10^3/uL (0.5-4.7); ABSOLUTE MONOCYTES (AUTO) 0.8 10^3/uL (0.1-1.4); ABSOLUTE NEUT (AUTO) 6.3 10^3/uL (1.7-8.2); BASOPHILS % (AUTO) 1.2 % (0-2); HEMATOCRIT 35.6 % (36.0-47.0); HEMOGLOBIN 11.4 g/dL (12.0-15.5); HGB HCT DIFFERENCE -1.4; LYMPHOCYTES % (AUTO) 17.1 % (13-45); MEAN CORPUSCULAR HEMOGLOBIN 26.8 pg (27.0-33.4); MEAN CORPUSCULAR VOLUME 84 fl (80-97); MONOCYTES % (AUTO) 8.9 % (3-13); RED BLOOD COUNT 4.25 10^6/uL (3.72-5.28); SEGMENTED NEUTROPHILS % (AUTO) 70.8 % (42-78); WHITE BLOOD COUNT 8.9 10^3/uL (4.0-10.5)
[2016-08-04 06:16] LABS: ANION GAP 14 (5-19); BLOOD UREA NITROGEN 17 mg/dL (7-20); CALCIUM 8.9 mg/dL (8.4-10.2); CARBON DIOXIDE 25 mmol/L (22-30); CHLORIDE 109 mmol/L (98-107); CREATININE RESULT 1.14 mg/dL (0.52-1.25); GLUCOSE 56 mg/dL (75-110); SODIUM 148.3 mmol/L (137-145)
[2016-08-04] MEDS: OLANZAPINE 5 MG TABLET PO SCH ×2 (07:50→17:26)
[2016-08-04] MEDS: LEVOTHYROXINE SODIUM 0.05 MG TABLET PO SCH (07:51)
--- NOTE | 2016-08-04 09:16 | PDOC TRANSFER SUMMARY ---
General - Admit/Disc Date/PCP Admission Date/Primary Care Provider: 07/31/16 21:51 DANYELLE VYAS Discharge Date: 08/04/16 - Discharge Diagnosis (1) Urinary tract infection Is this a current diagnosis for this admission?: YesSummary: Patient received 3 days of IV ceftriazone. Culture grew ecoli transitioned to Ceftin 250 mg po bid for 7 more days (2) Fever Is this a current diagnosis for this admission?: YesSummary: Resolved after initiation of antibiotic therapy (3) ARF (acute renal failure) Is this a current diagnosis for this admission?: YesSummary: Secondary to prerenal resolved to baseline with IV hydration (4) Leukocytosis Is this a current diagnosis for this admission?: YesSummary: Resolved with antibiotics. Positive urine culture and blood cultures x 2 with ecoli. Now clear (5) Diabetes Is this a current diagnosis for this admission?: YesSummary: Continue current medications and sliding scale coverage (6) Bacteremia Is this a current diagnosis for this admission?: YesSummary: 2 of 2 blood cultures grew ecoli - Additional Information Resuscitation Status: Full Code Discharge Diet: Diabetic Discharge Activity: Activity As Tolerated Home Medications: Acetaminophen [Tylenol] 650 mg PO Q4HP PRN 08/01/16 Albuterol Sulfate [Ventolin 0.083% Neb 2.5 mg/3 mL Ampul] 1 vial NEB Q4HP PRN Dextran 70/Hypromellose [Artificial Tears] 1 drop OU Q4HP PRN 08/01/16 Guaifenesin/D-Methorphan Hb [Robitussin-Dm Syrup 10 ml Udcup] 10 ml PO Q4HP PRN 08/01/16 Insulin Aspart [Novolog Insulin (Aspart) 100 unit/mL] See Protocol SUBCUT TID Insulin Glargine,Hum.rec.anlog [Lantus Insulin 100 Unit/1 ml 10 ml] 60 units SUBCUT QPM 08/01/16 Levothyroxine Sodium 1 tab PO QAM 08/01/16 Lisinopril 1 tab PO TID 08/01/16 Loperamide HCl [Imodium 2 mg Capsule] See Protocol PO ASDIR PRN 08/01/16 Lorazepam 1 tab PO BID 08/01/16 Magnesium Hydroxide [Milk of Magnesia 30 ml Udcup] 30 ml PO BIDP PRN 08/01/16 Olanzapine 1 tab PO QAM 08/01/16 Olanzapine 1 tab PO QPM 08/01/16 Simvastatin 1 tab PO QPM 08/01/16 Sitagliptin Phosphate [Januvia] 1 tab PO QAM 08/01/16 Zolpidem Tartrate 10 mg PO HSP PRN 08/01/16 Cefuroxime Axetil [Ceftin 250 mg Tablet] 250 mg PO BID #14 tablet 08/04/16 Oxycodone HCl/Acetaminophen [Oxycodone-Acetaminophen 5-325] 1 tab PO BIDP PRN # 10 tablet 08/04/16 History of Present Illness Admission Date/PCP: 07/31/16 21:51 DANYELLE VYAS History of Present Illness: LELE PRITCHETT is a 89 year old female resident of [facility] in [facility], sent to the emergency room for evaluation of above complaint. Patient has been discussed with emergency room physician who evaluated the patient. Patient is globally disoriented and is able to provide no history whatsoever in terms of acute or chronic events, review of systems, personal habits, family history, etc., Other than the fact that she was "shaking" earlier today. No friends or family are present. Old inpatient records are reviewed. Patient denies pain. No further information available this point in time.. From review of old records, concomitant medical problems include hypothyroidism , type I diabetes mellitus, dementia, hypertension, and a reported history of congestive heart failure, with unknown ejection fraction. Laboratory results are listed in [facility] and are reviewed. X-ray summary results are listed below, with full report(s) reviewed. . EKG reviewed and compared to prior tracing from 07/06/2014. Social history/personal habits: No information available this point in time. Should patient become mentally incapacitated, surrogate health care decision maker no information available this point in time.. Family History : From review of old records, positive for diabetes. No other information available this point in time. Allergies/adverse reactions are listed in [facility] and are reviewed. Home medications are reviewed from a copy of the medication administration record from the [facility] and are to be reconciled by nursing staff in [facility]. One page is somewhat illegible, and I have asked ER staff to request a second copy. [facility] medications initially autopopulated into [facility] may not accurately reflect patient's true medications, dosages, and/or frequencies. Unfortunately, patient uncertain of medications/dosages/frequencies. REVIEW OF SYSTEMS: See history and present illness. Otherwise, no further information available this point in time. PHYSICAL EXAMINATION: 5 feet tall. 68 kg. 99.3 kg/m BMI. Blood pressure 111/66. Pulse 104 and regular. 96% saturation on room air. Respirations are 17 and unlabored. Temperature 100.2 earlier; skin feels normothermic at present. Obese otherwise well-developed elderly -[place] female, appearing in number of years younger than her stated age. She is awake reasonably alert pleasant and cooperative. No obvious distress other than somewhat anxious. Denies pain. Skin is warm and dry. No grossly obvious evidence of rash in areas of skin examined. No subcutaneous nodules palpated. ENT: Hearing grossly normal to normal conversation. Tongue midline on protrusion pink and slightly moist. Eyes: No scleral icterus. Pupils equal and reactive to light at 4 mm. [place] conjunctivae. Neck is supple and nontender to gentle active range of motion and palpation. Midline trachea. No palpable thyroid nodule mass enlargement or tenderness. Lymphatic: No palpable cervical or clavicular nodes. Neck and lymphatic exams limited by patient body habitus. Psychiatric: Globally disoriented. Lungs: Auscultation reveals clear and equal breath sounds bilaterally. No use of accessory respiratory muscles. Cardiovascular: Heart regular rate and rhythm, without gallop murmur or rub. No carotid or abdominal aortic bruits. No ankle or pedal edema. Faintly palpable dorsalis pedis pulses. Abdomen: soft, somewhat obese, nontender with positive bowel sounds. Unable to adequately evaluate abdomen for masses or organomegaly due to body habitus. Extremities: Feet are warm and dry. No calf tenderness to compression. No grossly obvious visual evidence of calf swelling. Gentle manipulation of lower extremities fails to reveal any obvious evidence of injury or instability to knees hips or ankles. Neurologic: Moves upper extremities grossly normally. Patellar reflexes absent. Absent Babinski. Light touch is intact at feet. Dorsiflexion and plantarflexion of feet 5 / 5 and symmetric. Hospital Course Hospital Course: Patient was admitted to telemetry unite. She received IV hydration and antibiotics. She improved over the next 2 days. Fevers and leucocytosis resolved. She had some intermittent agitation that required a bedside sitter. This improved back to her baseline. Today she has normal wbc count and is afebrile. She is ready to return to SNF setting. Physical Exam Vital Signs: Temp Pulse Resp BP Pulse Ox 98.2 F 87 16 131/58 H 99 08/04/16 07:47 08/04/16 07:47 08/04/16 07:47 08/04/16 07:47 08/04/16 07:47 Intake & Output 08/03/16 08/04/16 08/05/16 06:59 06:59 06:59 Intake Total 580 906 Output Total 400 Balance 580 506 Weight 81.5 kg General appearance: PRESENT: no acute distress, well-developed, well-nourished Head exam: PRESENT: atraumatic, normocephalic Eye exam: PRESENT: conjunctiva pink, EOMI, PERRLA. ABSENT: scleral icterus Ear exam: PRESENT: normal external ear exam Mouth exam: PRESENT: moist, tongue midline Neck exam: ABSENT: carotid bruit, JVD, lymphadenopathy, thyromegaly Respiratory exam: PRESENT: clear to auscultation ortega. ABSENT: rales, rhonchi, wheezes Cardiovascular exam: PRESENT: RRR. ABSENT: diastolic murmur, rubs, systolic murmur Pulses: PRESENT: normal dorsalis pedis pul Vascular exam: PRESENT: normal capillary refill GI/Abdominal exam: PRESENT: normal bowel sounds, soft. ABSENT: distended, guarding, mass, organolmegaly, rebound, tenderness Rectal exam: PRESENT: deferred Extremities exam: PRESENT: full ROM. ABSENT: calf tenderness, clubbing, pedal edema Neurological exam: PRESENT: alert, altered, awake, CN II-XII grossly intact. ABSENT: motor sensory deficit Psychiatric exam: PRESENT: appropriate affect, normal mood. ABSENT: homicidal ideation, suicidal ideation Skin exam: PRESENT: dry, intact, warm. ABSENT: cyanosis, rash Results Laboratory Results: 08/04/16 05:16 08/04/16 05:16 08/04/16 08/04/16 05:16 05:16 WBC 8.9 RBC 4.25 Hgb 11.4 L Hct 35.6 L MCV 84 MCH 26.8 L MCHC 32.0 RDW 14.0 Plt Count 224 Seg Neutrophils % 70.8 Lymphocytes % 17.1 Monocytes % 8.9 Eosinophils % 2.0 Basophils % 1.2 Absolute Neutrophils 6.3 Absolute Lymphocytes 1.5 Absolute Monocytes 0.8 Absolute Eosinophils 0.2 Absolute Basophils 0.1 Sodium 148.3 H Potassium 4.0 Chloride 109 H Carbon Dioxide 25 Anion Gap 14 BUN 17 Creatinine 1.14 Est GFR ( Amer) 54 L Est GFR (Non-Af Amer) 45 L Glucose 56 L Calcium 8.9 Impressions: Acute Abdomen Series 07/31/16 17:19 IMPRESSION: NO RADIOGRAPHIC EVIDENCE FOR ACUTE ABDOMINAL DISEASE. Transfer Plan - Disposition Transfer Plan: Patient will return to SNF setting on oral antibiotics for the next 7 days - Time Spent with Patient Time spent with patient: Less than 30 Minutes Qualifiers PATEINT BEING DISCHARGED WITH ANY OF THE FOLLOWING DIAGNOSIS?: No Plan Discharge Plan: Return to SNF on oral antibiotics for the next 7 days. Time Spent: Less than 30 Minutes
[2016-08-04] MEDS: CEFUROXIME 250 MG TABLET PO SCH ×2 (11:37→17:26)
[2016-08-04] MEDS: DOCUSATE SODIUM 100 MG CAPSULE PO SCH ×2 (11:38→17:26)
[2016-08-04] MEDS: SITAGLIPTIN PHOSPHATE 25 MG TABLET PO SCH (11:38)
[2016-08-04] MEDS: HEPARIN SOD (PORCINE) 5,000 UNIT/ML 1 ML SYRINGE SUBCUT SCH (11:38)
[2016-08-04 17:05] VITALS: BP 139/57
[2016-08-04] MEDS: INSULIN LISPRO 100 UNIT/ML 3 ML VIAL SUBCUT PRN (17:29)
== END 2016-08-04 17:46 | disposition home health service (06) | DRG 683 ==
LOC: ER 16:53 → EH 21:24 → UNDOADMIN 21:24 → EH 21:51 → 4N 08-01 02:20
PROVIDERS: ADMIT Family Medicine; ATTEND Family Medicine
PROC: 3E0F73Z Introduction of Anti-inflammatory into Respiratory Tract, Via Natural or Artificial Opening (ICD-10-PCS; principal; 2016-08-01)
DX: N17.9 Acute kidney failure, unspecified (principal); N39.0 Urinary tract infection, site not specified; I13.0 Hypertensive heart and chronic kidney disease with heart failure and stage 1 through stage 4 chronic kidney disease, or unspecified chronic kidney disease; E10.22 Type 1 diabetes mellitus with diabetic chronic kidney disease; N18.2 Chronic kidney disease, stage 2 (mild); I50.9 Heart failure, unspecified; B96.20 Unspecified Escherichia coli [E. coli] as the cause of diseases classified elsewhere; E03.9 Hypothyroidism, unspecified; F03.90 Unspecified dementia, unspecified severity, without behavioral disturbance, psychotic disturbance, mood disturbance, and anxiety; M19.90 Unspecified osteoarthritis, unspecified site; D63.1 Anemia in chronic kidney disease; Z79.4 Long term (current) use of insulin; Z79.899 Other long term (current) drug therapy; Z88.3 Allergy status to other anti-infective agents
CPT/HCPCS: 36415; 74022; 80048; 80053; 81001; 82962; 83735; 84443; 85025; 87040; 87077; 87086; 87088; 87186; 93005; 93010; 96374; 99285; J0696; J1644; J1815; J3490